=== PATIENT | male | born 1955 | race Asian ===

== ENCOUNTER 2017-03-03 11:21 | Day surgery (SDC) | payer OTHER ==
[~2017-03-03] VITALS: Ht 162.6 cm; Wt 53.3 kg
[2017-03-03 11:59] VITALS: Ht 162.6 cm; Wt 53.3 kg
[2017-03-03] MEDS ORDERED: NORVASC PO (12:10)
[2017-03-03] MEDS ORDERED: LORATADINE PO (12:10)
[2017-03-03] MEDS ORDERED: LIDOCAINE 4% SOLUTION 50 ML BTL ONE (13:37)
[2017-03-03] MEDS ORDERED: MIDAZOLAM 1 MG/ML 2 ML INJ ONE (14:27)
[2017-03-03] MEDS ORDERED: FENTAnyl 50 MCG/ML VIAL ONE (14:27)
[2017-03-03 14:35] VITALS: BP 119/100; RESP 14
--- NOTE | 2017-03-03 14:41 | OPPN ---
Date/Time of Note Date/Time of Note DATE: 03/03/17 TIME: 14:37 Operative Report Preoperative Diagnosis F/H/O GASTRIC CA EPIGASTRIC PAIN Postoperative Diagnosis NORMAL EGD Operation/Procedure Performed EGD BX Surgeon see signature line visual merchandising assistant NONE Anesthesia: moderate sedation (VERSED 2MG/FENTANYL 50 MCG/TOTAL TIME MODERATE SEDATIONSEE COLON REPORT) Estimated blood loss: none Transfusion Required none Specimen RANDOM GASTRIC BIOPSY Grafts/Implants none Complications none LYNNETTE PULLIAM MD Mar 03, 2017 14:41
--- NOTE | 2017-03-03 14:47 | OPPN ---
Date/Time of Note Date/Time of Note FALLOW O.P. REPEAT COLONOSCOPY 3YRSDATE: 03/03/17 TIME: 14:41 Operative Report Preoperative Diagnosis SCREENING COLONOSCOPY Postoperative Diagnosis 4MM POLYP IN ASC/COLON 3MM POLYP IN DESC/COLON Operation/Procedure Performed COLONOSCOPY REMOVAL 2 POLYPS COLD ,JUMBO BX Surgeon see signature line pest controller assistant NONE Anesthesia: moderate sedation (TOTAL TIME FOR MODERATE [id number] MTS FOR EGD AND COLONOSCOPY) Estimated blood loss: none Transfusion Required none Specimen ASCENDING COLON 4MM SESSILE POLYP REMOVED WITH JUMBO BX. DESCENDING COLON POLYP 3MM POLYP REMOVED WITH BX FORCEPS Grafts/Implants none Complications none LYNNETTE PULLIAM MD Mar 03, 2017 14:47
--- NOTE | 2017-03-03 18:54 | GILP ---
DATE OF PROCEDURE: The patient underwent EGD, biopsy random of the stomach, for family history of gastric CA. POSTOPERATIVE DIAGNOSIS: Essentially normal upper endoscopy. DESCRIPTION OF PROCEDURE: The patient was put in left lateral decubitus after obtaining informed co nsent. He was sedated with 2 mg IV Versed and 50 mcg of fentanyl and advanced Olympus video upper e ndoscope into the esophagus, stomach and duodenum up to second part. Esophagus in its entire length is normal. Duodenum is normal. Stomach including by retroflexion examination of the fundus, body and antrum and pylorus normal, but random biopsies done in the stomach to rule out H. pylori. Posto p, patient had no complication. Plan will be to await for biopsy report and proceed with colonoscop y. The total time for moderate sedation will be declared after colonoscopy. Dictated By: LYNNETTE CAM Conf#: [id number] DID#: [id number]
--- NOTE | 2017-03-03 19:00 | GILP ---
DATE OF PROCEDURE: 03/03/2017 PREOPERATIVE DIAGNOSIS: Screening colonoscopy. POSTOPERATIVE DIAGNOSIS: A 4 mm sessile polyp removed with jumbo biopsy forceps with multiple biops ies completely removed from the ascending colon, a 3 mm polyp in the descending colon also removed w ith biopsy forceps. PROCEDURE PERFORMED: Colonoscopy. DESCRIPTION OF PROCEDURE: The patient was put in left lateral decubitus. He already was sedated fo r EGD and no further sedation was required as he was quite tolerant of the procedure. Advanced Olym pus video colonoscope all the way to cecum. Appendiceal opening and ileocecal valve were identified . Cecum and ascending colon exam showed a 4 mm polyp, very sessile in the ascending colon. This wa s removed by jumbo biopsy forceps upon multiple biopsies completely removed and sent to histopatholo gy. Transverse colon is normal. Descending colon normal. In the descending colon area, there were diverticula where a 3 mm polyp was found. This was removed again with jumbo biopsy forceps complet andrew. Sigmoid colon is normal. Rectum including retroflexion is normal. PLAN: This will be to await for biopsy report. Repeat colonoscopy in 3 years. Dictated By: LYNNETTE CAM Conf#: [id number] DID#: [id number]
== END 2017-03-03 16:08 | disposition home or self-care (01) ==
LOC: GIL 11:21
PROVIDERS: ATTEND Internal Medicine
DX: R10.13 Epigastric pain (principal); Z87.11 Personal history of peptic ulcer disease; Z80.0 Family history of malignant neoplasm of digestive organs; Z12.11 Encounter for screening for malignant neoplasm of colon; K63.5 Polyp of colon
CPT/HCPCS: 43239; 45380; 88305; 88312; J2250; J3010; Z7610